=== PATIENT | female | born 1945 | race Caucasian/White ===

== ENCOUNTER 2018-04-03 07:30 | Emergency (ER) | payer OTHER, BC ==
[2018-04-03 07:38] VITALS: BMI 29.2
--- NOTE | 2018-04-03 07:50 | PDOC ---
History of Present Illness - General Chief Complaint: Pain, Acute Stated Complaint: ABD PAIN - History of Present Illness Initial Comments: The patient is a 72F w/ a history of graves s/p sx, HTN, and HLD who presents for 1d of RUQ abdominal pain that initially radiated towards her right flank and back but is now more localized in the RUQ/epigastric region. She describes the pain as burning/sharp, constant, not exacerbated or alleviated by anything she can identify, and she denies ever having had pain like this before. She notes for a short period last night that the pain radiated to her chest but no longer does so. She endorses associated N, burping, and flatus. Denies vomiting, diarrhea, fevers, vision changes, SOB, sick contacts. PCP: Dr. Ohara 04/03/18 08:01 Past History - Past Medical History Allergies/Adverse Reactions: Allergies Allergy/AdvReac Type Severity Reaction Status Date / Time pseudoephedrine Allergy palpitation Verified 04/03/18 07:34 s Home Medications: Ambulatory Orders Amlodipine Besylate 5 mg PO DAILY 04/03/18 Levothyroxine [Synthroid -] 125 mcg PO DAILY 04/03/18 Metoprolol Succinate [Toprol Xl] 50 mg PO DAILY 04/03/18 Pravastatin Sodium [Pravachol (Nf)] 20 mg PO HS 04/03/18 Cardiac Disorders: (tachycardia) COPD: No HTN: Yes Hypercholesterolemia: Yes Thyroid Disease: Yes - Surgical History Appendectomy: Yes - Immunization History Immunization Up to Date: Yes - Suicide/Smoking/Psychosocial Hx Smoking History: Former smoker Have you smoked in the past 12 months: No If you are a former smoker, when did you quit?: 2000 Information on smoking cessation initiated: No Hx Alcohol Use: No Drug/Substance Use Hx: No Substance Use Type: None Review of Systems - Review of Systems Able to Perform ROS?: Yes Comments:: GENERAL/CONSTITUTIONAL: No fever or chills. No weakness HEAD, EYES, EARS, NOSE AND THROAT: No change in vision. No ear pain or discharge. No sore throat CARDIOVASCULAR: No shortness of breath RESPIRATORY: No cough, wheezing, or hemoptysis GASTROINTESTINAL: per HPI GENITOURINARY: No dysuria, frequency, or change in urination MUSCULOSKELETAL: No joint or muscle swelling or pain. No neck or back pain SKIN: No rash NEUROLOGIC: No headache, vertigo, loss of consciousness, or change in strength/ sensation ENDOCRINE: No increased thirst. No abnormal weight change HEMATOLOGIC/LYMPHATIC: No anemia, easy bleeding, or history of blood clots ALLERGIC/IMMUNOLOGIC: No hives or skin allergy 04/03/18 08:04 Is the patient limited Wallisian proficient: No *Physical Exam - Vital Signs Last Vital Signs Temp Pulse Resp BP Pulse Ox 98.6 F 97 H 18 118/73 99 04/03/18 07:31 04/03/18 07:31 04/03/18 07:31 04/03/18 07:31 04/03/18 07:31 - Physical Exam Comments: GENERAL: Awake, alert, and fully oriented, in no acute distress HEAD: No signs of trauma, normocephalic, atraumatic EYES: PERRLA, EOMI, sclera anicteric, conjunctiva clear ENT: Hearing grossly normal, nares patent, oropharynx clear without exudates. Moist mucosa LUNGS: No distress, speaks full sentences, clear to auscultation bilaterally HEART: Regular rate and rhythm, normal S1 and S2, no murmurs appreciated, peripheral pulses normal and equal bilaterally ABDOMEN: Soft, mild RUQ/epigastric TTP, normoactive bowel sounds. non- distended. No guarding, no rebound EXTREMITIES : Normal inspection, Normal range of motion, no edema. No clubbing or cyanosis NEUROLOGICAL: Cranial nerves II through XII grossly intact. Normal speech, normal gait, no focal sensorimotor deficits SKIN: Warm, Dry, normal turgor, no rashes or lesions noted 04/03/18 08:06 ED Treatment Course - LABORATORY CBC & Chemistry Diagram: 04/03/18 08:30 04/03/18 08:30 Medical Decision Making - Medical Decision Making The patient is a 72F who presents for evaluation of epigastric/RUQ abd pain ddx: biliary dz, pancreatitis, gastritis, PUD; less likely colitis, perforation ED Course CMP, CBC, cardiac profile, lipase CXR ECG 1L NS, Ofirmev, and Zofran 04/03/18 08:07 ECG QTc 485 Sinus tachy 04/03/18 08:18 No leukocytosis Hgb 14 Tbili 0.6 Trop I neg No IZZY Lipase wnl, lytes wnl 04/03/18 09:44 GI cocktail for symptomatic relief Less likely to be biliary dz w/ normal Tbili, only mild RUQ pain, no known relation to food 04/03/18 09:52 Symptoms improved, abd NTTP, denies N/V; endorses wanting to eat and tolerated fluid W/u w/o findings of emergent pathology Plan for D/C w/ PCP f/u and GI referral Possibly 2/2 PUD Discharge instructions and return precautions given Patient verbalized understanding and is in agreement Dispo: Home 04/03/18 12:24 *DC/Admit/Observation/Transfer Diagnosis at time of Disposition: RUQ abdominal pain, PUD (peptic ulcer disease) - Discharge Dispostion Disposition: HOME Condition at time of disposition: Stable Decision to Admit order: No - Referrals Referrals: Reece Ohara [Primary Care Provider] - Tiffanie Curtis MD [Staff Physician] - - Patient Instructions Printed Discharge Instructions: DI for Abdominal Pain-Adult Additional Instructions: You were seen in the Emergency Department for abdominal pain. You were evaluated and found to not have any visible gallstones or inflammation of your pancreas on ultrasound. Your other labs were within normal limits. Please review the handouts provided at discharge. Please follow up with your primary care physician within the next 1-4 days. Return to the Emergency Department if you develop worsening pain, nausea/ vomiting, fevers/chills, diarrhea, blood in your urine or stool, or any new/ concerning symptoms. - Post Discharge Activity
--- NOTE | 2018-04-03 07:59 | PDOC ---
Attending Attestation - HPI HPI: 04/03/18 08:51 The patient is a 72-year-old female with a past medical history of HTN, HLD, and hypothyroidism here today for an evaluation of right upper quadrant pain. The patient reports her pain started one day ago, radiated to her right flank, an 8/10 in severity, and is burning/sharp in quality. The patient notes however that her pain now radiates across her whole upper quadrant and notes it radiated once to her chest. She reports nothing has given her relief. She notes associated nausea and bloating. The patient denies the pain is similar to a prior stomach virus. Patient denies fever, cough, headache, lightheadedness. Denies shortness of breath. Denies vomiting, diarrhea. Denies edema or leg swelling. Denies urinary symptoms. Denies neurologic symptoms. Allergies: pseudoephedrine Surgical history: none reported Family history: gallstones PCP: Reece cervantes. - Physicial Exam PE: 04/03/18 08:51 GENERAL: The patient is in no acute distress. HEAD: Normal with no signs of trauma. EYES: PERRLA, EOMI, sclera anicteric, conjunctiva clear. ENT: Ears normal, nares patent, oropharynx clear without exudates. Moist mucous membranes. NECK: Normal range of motion, supple without lymphadenopathy, JVD, or masses. LUNGS: Breath sounds equal, clear to auscultation bilaterally. No wheezes, and no crackles. HEART:Regular rate and rhythm, normal S1 and S2 without murmur, rub or gallop. ABDOMEN: Soft, nontender, normoactive bowel sounds. No guarding, no rebound. No masses palpable. EXTREMITIES: Normal range of motion, no edema. No clubbing or cyanosis. No erythema, or tenderness. NEUROLOGICAL: Cranial nerves II through XII grossly intact. Normal speech. No focal neurological deficits. MUSCULOSKELETAL: Back non-tender to palpation, no CVA tenderness SKIN: Warm, Dry, normal turgor, no rashes or lesions noted. - Medical Decision Making 04/03/18 08:52 Documentation prepared by Kamryn Robertson, acting as medical csr for Jodie Sarah MD. <Kamryn Robertson - Last Filed: 04/03/18 08:51> - Resident Resident Name: Osei Lawson - ED Attending Attestation I have performed the following: I have examined & evaluated the patient, The case was reviewed & discussed with the resident, I agree w/resident's findings & plan, Exceptions are as noted - Medical Decision Making 72 yo F h/o appendectomy Presenting to the ER with upper abdominal pain No point tenderness on my examination No fevers or chills (+) nausea, no vomiting No diarrhea (+) flatus On exam: No point tenderness identified No abd distention 04/03/18 07:58 EKG: Sinus rhythm rate of 112 bpm, Left axis deviation, no st elevation, ? ST depressions II, aVF, t wave inversions DD: gastritis, pancreatitis, cholecystitis, ACS Will do: Labs (including trop and lipase), IVF, pain meds US UA EKG ReAssess 04/03/18 09:51 Laboratory Tests 04/03/18 04/03/18 04/03/18 08:30 08:30 08:30 WBC 6.2 Hgb 14.1 Hct 39.7 Plt Count 269 BUN 11 Creatinine 0.8 Lactic Acid 1.7 Creatine Kinase 50 Troponin I < 0.02 Lipase 166 US no gallstones, no PCCF, No gb wall thickening Trop neg (after symptoms all night) Lactate negative Pt feels better Will discharge to home Follow up with PMD and GI Return to the ER for any other concerns or complaints 04/04/18 09:49 <Jodie Sarah - Last Filed: 04/04/18 09:50> *DC/Admit/Observation/Transfer <Kamryn Robertson - Last Filed: 04/03/18 08:51> <Jodie Sarah - Last Filed: 04/04/18 09:50> Diagnosis at time of Disposition: RUQ abdominal pain, PUD (peptic ulcer disease) - Discharge Dispostion Disposition: HOME Condition at time of disposition: Stable - Referrals Referrals: Reece Cervantes [Primary Care Provider] - Tiffanie Curtis MD [Staff Physician] - - Patient Instructions Printed Discharge Instructions: DI for Abdominal Pain-Adult Additional Instructions: You were seen in the Emergency Department for abdominal pain. You were evaluated and found to not have any visible gallstones or inflammation of your pancreas on ultrasound. Your other labs were within normal limits. Please review the handouts provided at discharge. Please follow up with your primary care physician within the next 1-4 days. Return to the Emergency Department if you develop worsening pain, nausea/ vomiting, fevers/chills, diarrhea, blood in your urine or stool, or any new/ concerning symptoms. - Post Discharge Activity
[2018-04-03] MEDS ORDERED: SODIUM CHLORIDE 0.9% 500 ML INFUS.BAG IV ONE (08:07)
[2018-04-03] MEDS ORDERED: ONDANSETRON 4 MG/2 ML VIAL IVPUSH ONE (08:07)
[2018-04-03] MEDS ORDERED: ACETAMINOPHEN 1000 MG/100 ML VIAL (NON FORMULARY) IVPB ONE (08:07)
[2018-04-03] MEDS ORDERED: ACETAMINOPHEN INJECTION 100 ML IVPB ONE (08:25)
[2018-04-03] MEDS ORDERED: ONDANSETRON 4 MG/2 ML VIAL ONE (08:25)
[2018-04-03 08:38] LABS: HEMATOCRIT 39.7 % (32.4-45.2); HEMOGLOBIN 14.1 GM/dL (10.7-15.3); MCH 32.5 pg (25.7-33.7); MCHC 35.5 g/dl (32.0-36.0); MEAN CELL VOLUME 91.5 fl (80-96); MEAN PLT VOLUME 7.7 fl (7.5-11.1); PLATELET COUNT 269 K/MM3 (134-434); RBC 4.34 M/mm3 (3.60-5.2); RDW 12.8 % (11.6-15.6); WHITE BLOOD COUNT 6.2 K/mm3 (4.0-10.0)
[2018-04-03 09:14] LABS: ALK PHOS 78 U/L (45-117); ANION GAP 7 MMOL/L (8-16); BILIRUBIN,TOTAL 0.6 mg/dL (0.2-1); BLOOD UREA NITROGEN 11 mg/dL (7-18); CALCIUM 9.4 mg/dL (8.5-10.1); CHLORIDE 107 mmol/L (98-107); CO2 26 mmol/L (21-32); CREATININE 0.8 mg/dL (0.55-1.3); GLUCOSE,RANDOM 110 mg/dL (74-106); LIPASE 166 U/L (73-393); POTASSIUM 4.1 mmol/L (3.5-5.1); SGOT/AST 21 U/L (15-37); SGPT/ALT 31 U/L (13-61); SODIUM 140 mmol/L (136-145); TOT PROT 8.2 g/dl (6.4-8.2)
[2018-04-03] MEDS ORDERED: LIDOCAINE VISCOUS 2% ORAL/TOP 20 ML UNIT-DOSE CUP MM ONE (09:51)
[2018-04-03] MEDS ORDERED: MAG HYDROX/AL HYDROX/SIMETH 30 ML UNIT-DOSE CUP PO ONE (09:51)
[2018-04-03 10:07] LABS: URINE APPEARANCE CLEAR; URINE BILIRUBIN NEGATIVE (<2.0 mg/dL); URINE COLOR STRAW; URINE GLUCOSE (UA) NEGATIVE (NEGATIVE); URINE KETONE NEGATIVE (NEGATIVE); URINE LEUK ESTERASE NEGATIVE (NEGATIVE); URINE NITRITE NEGATIVE (NEGATIVE); URINE PROTEIN NEGATIVE (NEGATIVE); URINE UROBILINOGEN NEGATIVE mg/dL (0.2-1.0)
[2018-04-03 10:30] LABS: URINE MUCUS RARE
[2018-04-03] MEDS ORDERED: MAG HYDROX/AL HYDROX/SIMETH 30 ML UNIT-DOSE CUP ONE (10:35)
[2018-04-03 11:36] VITALS: BP 128/74; PULSE 81; TEMP 98.2
--- NOTE | 2018-04-03 15:36 | EKG ---
Test Reason : Blood Pressure : / mmHG Vent. Rate : 112 BPM Atrial Rate : 112 BPM P-R Int : 154 ms QRS Dur : 080 ms QT Int : 356 ms P-R-T Axes : 052 -38 031 degrees QTc Int : 485 ms SINUS TACHYCARDIA LEFT AXIS DEVIATION NONSPECIFIC ST ABNORMALITY cannot r/o ischemia ABNORMAL ECG WHEN COMPARED WITH ECG OF 13-NOV-2015 22:20, SINUS RHYTHM HAS REPLACED JUNCTIONAL RHYTHM VENT. RATE HAS INCREASED BY 48 BPM T WAVE INVERSION NO LONGER EVIDENT IN ANTERIOR LEADS Confirmed by FREDI HAAS MD ([id number]) on 04/03/2018 3:35:40 PM Referred By: Confirmed By:FREDI HAAS MD
== END 2018-04-03 11:36 | disposition home or self-care (01) ==
LOC: JER 07:30
PROC: 3E033NZ Introduction of Analgesics, Hypnotics, Sedatives into Peripheral Vein, Percutaneous Approach (ICD-10-PCS; principal; 2018-04-03)
PROC: 3E033GC Introduction of Other Therapeutic Substance into Peripheral Vein, Percutaneous Approach (ICD-10-PCS; 2018-04-03)
DX: K27.9 Peptic ulcer, site unspecified, unspecified as acute or chronic, without hemorrhage or perforation (principal); I10 Essential (primary) hypertension; E78.5 Hyperlipidemia, unspecified; E89.0 Postprocedural hypothyroidism
CPT/HCPCS: 36415; 71045-TC-FY; 76705-TC; 80053; 81003; 81015; 82550; 83605; 83690; 84484; 85027; 93005; 93010; 99284-25; J0131

== ENCOUNTER 2018-12-27 11:46 | Emergency (ER) | payer OTHER, BC ==
[2018-12-27 11:54] VITALS: BMI 28.9
[2018-12-27] MEDS ORDERED: ADENOSINE 6 MG/2 ML VIAL IVPUSH ONE ×2 (12:00→12:29)
--- NOTE | 2018-12-27 12:06 | PDOC ---
History of Present Illness - General Chief Complaint: Palpitations Stated Complaint: PALPITATIONS Time Seen by Provider: 12/27/18 12:05 - History of Present Illness Initial Comments: 12/27/18 12:38 The patient is a 73 year old female with a history of HTn, HLD, Hypothyroid, SVT who presents for evaluation of palpitations. The patient reports onset of palpitations and a racing heart sensation earlier this morning similar to her prior episodes of SVT prompting her presentation to the ED for further evaluation. The patient notes that her last episode of SVT was 1 and a half years ago. She otherwise denies fevers, chills, SOB, chest pain, nausea, vomiting, abdominal pain, or changes with urination or bowel movements. Past History - Past Medical History Allergies/Adverse Reactions: Allergies Allergy/AdvReac Type Severity Reaction Status Date / Time pseudoephedrine Allergy palpitation Verified 12/27/18 11:48 s Home Medications: Ambulatory Orders Amlodipine Besylate 5 mg PO DAILY 04/03/18 Levothyroxine [Synthroid -] 125 mcg PO DAILY 04/03/18 Metoprolol Succinate [Toprol Xl] 50 mg PO DAILY 04/03/18 Pravastatin Sodium [Pravachol (Nf)] 20 mg PO HS 04/03/18 Cardiac Disorders: (tachycardia) COPD: No HTN: Yes Hypercholesterolemia: Yes Thyroid Disease: Yes - Surgical History Appendectomy: Yes - Immunization History Immunization Up to Date: Yes - Suicide/Smoking/Psychosocial Hx Smoking History: Never smoked Have you smoked in the past 12 months: No If you are a former smoker, when did you quit?: 2000 Information on smoking cessation initiated: No Hx Alcohol Use: No Drug/Substance Use Hx: No Substance Use Type: None Review of Systems - Review of Systems Comments:: 12/27/18 12:41 Constitutional: No fevers, chills, fatigue, malaise HEENT: No Rhinorrhea, nasal congestion, visual changes Cardiovascular: Palpitations. No chest pain, syncope, lightheadedness Respiratory: No Cough, SOB, Hemoptysis, Gastrointestinal: No Abdominal pain, Nausea, Vomiting, Constipation, Diarrhea, Melena Genitourinary: No Dysuria, Frequency, Urgency, Hesitancy, Hematuria, Flank pain Musculoskeletal: No Myalgia, arthralgia Skin: No rashes, itching, bruising, pallor Neurologic: No Headache, Dizziness, Numbness, Weakness, or Tingling Psychiatric: No Hallucinations. No SI or HI *Physical Exam - Vital Signs Last Vital Signs Temp Pulse Resp BP Pulse Ox 98.5 F 205 H 20 111/37 L 98 12/27/18 11:49 12/27/18 11:49 12/27/18 11:49 12/27/18 11:49 12/27/18 11:49 - Physical Exam Comments: 12/27/18 12:41 General Appearance: Nourished. No Apparent Distress HEENT: No Pharyngeal Erythema, Tonsillar Exudate, Tonsillar Erythema Neck: No Cervical Lymphadenopathy Respiratory/Chest: Lungs Clear, Normal Breath Sounds. No Crackles, Rales, Rhonchi, Wheezing Cardiovascular: Regular Rhythm, Tachycardic Rate. No Murmur, Gallops, Rubs Gastrointestinal/Abdominal: Normal Bowel Sounds, Soft. No Guarding, Rebound, Tenderness Musculoskeletal: No CVA Tenderness Extremity: Normal Capillary Refill Integumentary: Normal Color, Dry, Warm Neurologic: Fully Oriented, Alert, Normal Mood/Affect, Normal Response, Heart Score/ECG Review #1 ECG reviewed & interpreted by me at: 12:00 12/27/18 12:42 HR 207 QRS 84 QTc 401 Supraventricular Tachycardia #2 ECG reviewed & interpreted by me at: 12:15 12/27/18 12:43 HR 123 NE 162 QRS 82 QTc [address] No Acute ST Changes ED Treatment Course - LABORATORY CBC & Chemistry Diagram: 12/27/18 12:00 12/27/18 12:00 Medical Decision Making - Medical Decision Making 12/27/18 12:44 The patient is a 73 year old female with a history of HTn, HLD, Hypothyroid, SVT who presents for evaluation of palpitations. The patient was noted to be in SVT on EKG on arrival to the ED. She was treated with 6mg of Adenosine with conversion into a sinus rhythm and improvement in her symptoms. Given the patient's history and physical exam, it is likely the patient's symptoms are due to SVT. The patient appears clinically well on exam after treatment and is now asymptomatic. However, we will obtain a cbc, cmp, troponin, tsh, bnp, coags , to evaluate further. We will continue to monitor and reassess while here in the ED. 12/27/18 14:06 CBC, cmp, troponin, tsh are unremarkable. The patient was reassessed and reports improvement in their symptoms. We are comfortable discharging the patient home in stable condition. Patient and family made aware of impression and plan, return precautions discussed including but not limited to worsening pain or symptoms, fevers, or signs of infection, chest pain, respiratory distress, inability to tolerate oral intake, dehydration, syncope, or neurologic changes. The patient is to follow up with PMD and specialist as recommended within 1 week, follow up information provided and the patient will call for an appointment. The patient is to take medications as instructed for duration of time and continue with supportive care, avoid triggers and precipitants. Patient is safe for outpatient follow-up. *DC/Admit/Observation/Transfer Diagnosis at time of Disposition: SVT (supraventricular tachycardia) - Discharge Dispostion Disposition: HOME Condition at time of disposition: Stable - Referrals Referrals: Reece Ohara [Primary Care Provider] - - Patient Instructions Printed Discharge Instructions: DI for Paroxysmal Supraventricular Tachycardia Additional Instructions: 1) Please follow-up with your primary care doctor in the next 2-3 days. Please call tomorrow to schedule a follow up appointment. If you cannot follow up with your doctor within 1 week please return to the Emergency Department for any urgent issues. 2) Your laboratory results were normal here in the ER. Your symptoms were due to an abnormal heart rhythm which resolved with treatment here in the ED. You are to follow up with your Locomotive Mechanic Apprentice in 2-3 days to discuss your ER visit and further management of your symptoms. 3) If you have any worsening of symptoms or any other concerns please return to the ER immediately. Return if worsening symptoms including fevers, headache, vomiting, visual or hearing disturbances, abdominal pain, chest pain, shortness of breath, syncope, dehydration, inability to take things by mouth/vomiting, altered mental status, or worsening concerning symptoms. 4) Please continue taking your home medications as directed. Side effects may include upset stomach, abdominal pain, vomiting, or diarrhea. Do not drink alcohol with your medications. - Post Discharge Activity
[2018-12-27] MEDS ORDERED: SODIUM CHLORIDE 1,000 ML IV STA (12:25)
[2018-12-27 13:09] LABS: ALBUMIN 4.1 g/dl (3.4-5.0); ALK PHOS 99 U/L (45-117); ANION GAP 8 MMOL/L (8-16); BILIRUBIN,TOTAL 0.8 mg/dL (0.2-1); BLOOD UREA NITROGEN 15.5 mg/dL (7-18); CALCIUM 9.5 mg/dL (8.5-10.1); CHLORIDE 107 mmol/L (98-107); CO2 26 mmol/L (21-32); CREATININE 0.8 mg/dL (0.55-1.3); GLUCOSE,RANDOM 101 mg/dL (74-106); POTASSIUM 4.6 mmol/L (3.5-5.1); SGOT/AST 21 U/L (15-37); SGPT/ALT 28 U/L (13-61); SODIUM 140 mmol/L (136-145); TOT PROT 8.2 g/dl (6.4-8.2)
[2018-12-27 13:17] LABS: INR 0.92 (0.83-1.09); PROTHROMBIN TIME (PATIENT) 10.8 SEC (9.7-13.0)
--- NOTE | 2018-12-27 13:18 | PDOC ---
Attending Attestation - Resident Resident Name: CyndeeAlbert - ED Attending Attestation I have performed the following: I have examined & evaluated the patient, The case was reviewed & discussed with the resident, I agree w/resident's findings & plan, Exceptions are as noted - HPI HPI: 12/27/18 13:09 Ms. Rangel is a 73 yo F h/o graves disease, HTN, HLD, recurrent history of SVT over the past 25 years Pt reports that she was in her usual state of health and noted palpitations this morning No chest pain No shortness of breath She is very familiar with these symptoms, last time she had them was 1 year ago - Physicial Exam PE: 12/27/18 13:25 GENERAL: The patient is in no acute distress. ENT: Ears normal, nares patent, oropharynx clear without exudates. Moist mucous membranes. NECK: Normal range of motion, supple LUNGS: Breath sounds equal, clear to auscultation bilaterally. HEART: Tachycardiac, regular, no murmur appreciated ABDOMEN: Soft, nontender, normoactive bowel sounds. EXTREMITIES: Normal range of motion, no lower extremity edema. NEUROLOGICAL: Cranial nerves II through XII grossly intact. Normal speech. No focal neurological deficits. SKIN: Warm, Dry, normal turgor, no rashes or lesions noted. - Critical Care Time Total Critical Care Time: 60 Critical Care Statement: The care of this patient involved high complexity decision making to prevent further life threatening deterioration of the patient 's condition and/or to evaluate & treat vital organ system(s) failure or risk of failure. - Medical Decision Making 12/27/18 13:[address] Gray She has reviewed her notes, May 2018 stress echo, did 5 minutes of Osbaldo protocol, nml fxn, no ischemia, TR She is requesting copies of the EKG be faxed to [phone] Pt can increase metoprolol to 75mg (will discuss this with the patient) or be seen by EP for ablation (if episodes SVT increases) EKG #1: SVT rate of 207bpm EKG #2: ST rate of 123 bpm, L axis deviation, lateral st depressions, t waves upright 12/27/18 13:23 Laboratory Tests 12/27/18 12/27/18 12:00 12:00 BUN 15.5 Creatinine 0.8 Creatine Kinase 51 Troponin I < 0.02 TSH 1.25 Clinical impression: Supraventricular Tachycardia, initial presentation 12/27/18 14:00 Laboratory Tests 12/27/18 12:00 WBC 7.7 Hgb 14.4 Hct 42.5 Plt Count 344 D Will discharge to home Follow up with [employer] Clinical impression: SVT, initial presentation
[2018-12-27 13:53] LABS: BASO % 1.1 % (0-2.0); HEMATOCRIT 42.5 % (32.4-45.2); HEMOGLOBIN 14.4 GM/dL (10.7-15.3); LYMPH % 34.8 % (8-40); MCH 31.1 pg (25.7-33.7); MEAN CELL VOLUME 91.5 fl (80-96); MEAN PLT VOLUME 8.1 fl (7.5-11.1); MONO % 9.7 % (3.8-10.2); NEUT % 52.4 % (42.8-82.8); PLATELET COUNT 344 K/MM3 (134-434); RBC 4.64 M/mm3 (3.60-5.2); RDW 13.2 % (11.6-15.6); WHITE BLOOD COUNT 7.7 K/mm3 (4.0-10.0)
[2018-12-27 14:20] VITALS: BP 142/88; PULSE 91; TEMP 98
--- NOTE | 2018-12-29 11:42 | EKG ---
Test Reason : Blood Pressure : / mmHG Vent. Rate : 123 BPM Atrial Rate : 123 BPM P-R Int : 162 ms QRS Dur : 082 ms QT Int : 306 ms P-R-T Axes : 049 -31 052 degrees QTc Int : 438 ms SINUS TACHYCARDIA LEFT AXIS DEVIATION NONSPECIFIC ST ABNORMALITY ABNORMAL ECG WHEN COMPARED WITH ECG OF 27-DEC-2018 11:54, VENT. RATE HAS DECREASED BY [address] LESS DEPRESSED IN LATERAL LEADS Confirmed by DAVID MARTINEZ, BONNIE ([id number]) on 12/29/2018 11:41:30 AM Referred By: Confirmed By:BONNIE HERNANDEZ MD
--- NOTE | 2018-12-29 11:42 | EKG ---
Test Reason : Blood Pressure : / mmHG Vent. Rate : 207 BPM Atrial Rate : 202 BPM P-R Int : 000 ms QRS Dur : 084 ms QT Int : 216 ms P-R-T Axes : 000 -21 073 degrees QTc Int : 401 ms POOR DATA QUALITY, INTERPRETATION MAY BE ADVERSELY AFFECTED SUPRAVENTRICULAR TACHYCARDIA ST depression, consider subendocardial injury ABNORMAL ECG WHEN COMPARED WITH ECG OF 03-APR-2018 07:46, VENT. RATE HAS INCREASED BY [address] NOW DEPRESSED IN LATERAL LEADS Confirmed by BONNIE HERNANDEZ MD ([id number]) on 12/29/2018 11:41:40 AM Referred By: Confirmed By:BONNIE HERNANDEZ MD
== END 2018-12-27 14:19 | disposition home or self-care (01) ==
LOC: JER 11:46
PROC: 3E033GC Introduction of Other Therapeutic Substance into Peripheral Vein, Percutaneous Approach (ICD-10-PCS; principal; 2018-12-27)
PROC: 3E0337Z Introduction of Electrolytic and Water Balance Substance into Peripheral Vein, Percutaneous Approach (ICD-10-PCS; 2018-12-27)
DX: I47.1 Supraventricular tachycardia (principal); I10 Essential (primary) hypertension; E78.5 Hyperlipidemia, unspecified; E03.9 Hypothyroidism, unspecified
CPT/HCPCS: 36415; 80053; 82550; 84443; 84484; 85025; 85610; 85730; 93005; 93010; 96361; 96374; 99285-25; J7030

== ENCOUNTER 2019-03-20 10:59 | Emergency (ER) | payer OTHER, BC ==
[2019-03-20] MEDS ORDERED: ADENOSINE 6 MG/2 ML VIAL IVPUSH ONE ×3 (11:12→11:31)
--- NOTE | 2019-03-20 11:26 | PDOC ---
History of Present Illness - General Stated Complaint: CHEST PAIN Time Seen by Provider: 03/20/19 11:10 - History of Present Illness Initial Comments: 03/20/19 11:23 73 yo F PMH Graves disease, HTN, HLD, recurrent SVT for past 25 years, presenting with rapid heart rate to the 190s. Feels identical to previous SVT episodes, CP, mild SOB. Notably seen here several months ago with same. 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 Past History - Past Medical History Allergies/Adverse Reactions: Allergies Allergy/AdvReac Type Severity Reaction Status Date / Time pseudoephedrine Allergy palpitation Verified 03/20/19 11:20 s Home Medications: Ambulatory Orders Amlodipine Besylate 5 mg PO DAILY 04/03/18 Levothyroxine [Synthroid -] 125 mcg PO DAILY 04/03/18 Metoprolol Succinate [Toprol Xl] 50 mg PO DAILY 04/03/18 Pravastatin Sodium [Pravachol (Nf)] 20 mg PO HS 04/03/18 Cardiac Disorders: (tachycardia) COPD: No HTN: Yes Hypercholesterolemia: Yes Thyroid Disease: Yes - Surgical History Appendectomy: Yes - Immunization History Immunization Up to Date: Yes - Psycho Social/Smoking Cessation Hx Smoking History: Never smoked Have you smoked in the past 12 months: No If you are a former smoker, when did you quit?: 2000 Hx Alcohol Use: No Drug/Substance Use Hx: No Substance Use Type: None Review of Systems - Review of Systems Constitutional: No: Chills, Diaphoresis, Fever HEENTM: No: Eye Pain, Blurred Vision, Tinnitus, Difficulty Swallowing Respiratory: Yes: Shortness of Breath. No: Cough, Orthopnea Cardiac (ROS): Yes: Chest Pain, Palpitations ABD/GI: No: Constipated, Nausea, Vomiting : No: Burning, Dysuria, Discharge, Frequency, Flank Pain Musculoskeletal: No: Back Pain Neurological: No: Headache, Numbness, Tingling, Ataxia, Dizziness *Physical Exam - Vital Signs Last Vital Signs Temp Pulse Resp BP Pulse Ox 195 H 16 115/98 99 03/20/19 11:18 03/20/19 11:18 03/20/19 11:18 03/20/19 11:18 - Physical Exam Comments: 03/20/19 11:22 Gen: well-developed, well-nourished, mild distress Neuro: AAOX4, CN II-XII intact, FTN intact, EOMI, PERRLA, 5/5 strength, SILT HEENT: atraumatic, normocephalic, dry mucous membranes Neck: trachea midline, supple CV: extremely tachy, regular rhythm, no murmurs, rubs, or gallops Pulm: CTA b/l, no wheezing Abd: soft, non-distended, non-tender MSK: full ROM, intact pulses Extr: no edema, no deformities Skin: warm, dry ED Treatment Course - LABORATORY CBC & Chemistry Diagram: 03/20/19 11:17 03/20/19 11:17 Medical Decision Making - Medical Decision Making 03/20/19 11:21 73 yo F PMH Graves disease, HTN, HLD, recurrent history of SVT over the past 25 years, p/w SVT to the 190s. - received adenosine 6mg - back in sinus, 120s bpm - ctm - 1L bolus - CBC, CMP, CXR, coags - TSH - ctm Initial EKG at 192 bpm, SVT. Now in sinus in 120s, slowing down over time. 03/20/19 11:30 Patient again in SVT to 190s. Given adenosine 12mg at 1133, back to normal sinus in 90s. 03/20/19 12:34 TSH normal. Spoke with Dr. Bailey, they will come see her. 03/20/19 16:[address] Amos, recommends Metoprolol 50mg BID, may follow up with Dr. Mortensen in [facility] or with Dr. Amos. Will dc patient. Discharge - Discharge Information Problems reviewed: Yes Clinical Impression/Diagnosis: SVT (supraventricular tachycardia) Condition: Improved Disposition: HOME - Follow up/Referral Referrals: Reece Ohara [Primary Care Provider] - Aleksandra Aguirre MD [Staff Physician] - - Patient Discharge Instructions Patient Printed Discharge Instructions: Paroxysmal Supraventricular Tachycardia Additional Instructions: You were seen with supraventricular tachycardia (SVT). This is when your heart beats extremely quickly. Please take metoprolol 50mg twice a day instead of your normal once a day. Follow up with your primary care doctor within one week. You may see Dr. Babatunde Mortensen within [facility] or with Dr. Aguirre for cardiology. Return to the ED if you develop worsening symptoms. - Post Discharge Activity
[2019-03-20 11:28] VITALS: BMI 26.5
[2019-03-20] MEDS ORDERED: SODIUM CHLORIDE 0.9% 500 ML INFUS.BAG IV ONE (11:28)
[2019-03-20 11:30] LABS: BASO % 1.1 % (0-2.0); EOS % 2.8 % (0-4.5); HEMATOCRIT 43.1 % (32.4-45.2); HEMOGLOBIN 14.5 GM/dL (10.7-15.3); MCH 31.4 pg (25.7-33.7); MCHC 33.7 g/dl (32.0-36.0); MEAN CELL VOLUME 93.2 fl (80-96); MONO % 9.2 % (3.8-10.2); NEUT % 47.9 % (42.8-82.8); PLATELET COUNT 298 K/MM3 (134-434); RBC 4.63 M/mm3 (3.60-5.2); RDW 12.9 % (11.6-15.6); WHITE BLOOD COUNT 7.1 K/mm3 (4.0-10.0)
[2019-03-20 11:38] LABS: INR 0.94 (0.83-1.09); PROTHROMBIN TIME (PATIENT) 11.1 SEC (9.7-13.0)
[2019-03-20] MEDS ORDERED: ALPRAZolam 1 MG TABLET PO ONE (11:38)
[2019-03-20 11:40] LABS: ACTIVATED PTT 32.9 SECONDS (25.2-36.5)
[2019-03-20] MEDS ORDERED: ALPRAZolam 0.25 MG TABLET ONE (11:40)
--- NOTE | 2019-03-20 11:48 | EKG ---
Test Reason : Blood Pressure : / mmHG Vent. Rate : 116 BPM Atrial Rate : 116 BPM P-R Int : 154 ms QRS Dur : 082 ms QT Int : 328 ms P-R-T Axes : 049 -31 064 degrees QTc Int : 455 ms SINUS TACHYCARDIA LEFT AXIS DEVIATION NONSPECIFIC ST ABNORMALITY ABNORMAL ECG WHEN COMPARED WITH ECG OF 27-DEC-2018 11:59, NO SIGNIFICANT CHANGE WAS FOUND Confirmed by DARRIAN ANTONIO MD ([id number]) on 03/20/2019 11:47:46 AM Referred By: Confirmed By:DARRIAN ANTONIO MD
--- NOTE | 2019-03-20 11:51 | PDOC ---
Attending Attestation - Resident Resident Name: Lon Craig - ED Attending Attestation I have performed the following: I have examined & evaluated the patient, The case was reviewed & discussed with the resident, I agree w/resident's findings & plan, Exceptions are as noted - HPI HPI: 03/20/19 11:52 Ms. Rangel is a 73 yo F h/o graves disease, HTN, HLD, recurrent history of SVT over the past 25 years Pt reports that she was in her usual state of health and noted palpitations this morning No chest pain No shortness of breath She is very familiar with these symptoms as she repeatedly has this 03/21/19 07:51 - Physicial Exam PE: 03/20/19 11:53 GENERAL: The patient is in no acute distress. ENT: Ears normal, nares patent, oropharynx clear without exudates. Moist mucous membranes. NECK: Normal range of motion, supple LUNGS: Breath sounds equal, clear to auscultation bilaterally. HEART: Tachycardiac, regular, no murmur appreciated ABDOMEN: Soft, nontender, normoactive bowel sounds. EXTREMITIES: Normal range of motion, no lower extremity edema. NEUROLOGICAL: Cranial nerves II through XII grossly intact. Normal speech. No focal neurological deficits. SKIN: Warm, Dry, normal turgor, no rashes or lesions noted. - Critical Care Time Total Critical Care Time: 120 Critical Care Statement: The care of this patient involved high complexity decision making to prevent further life threatening deterioration of the patient 's condition and/or to evaluate & treat vital organ system(s) failure or risk of failure. - Medical Decision Making 03/20/19 11:53 EKG: SVT, rate of 192 bpm, inferolateral ST depressions Adenosine 6 mg IV given Return to sinus rhythm Repeat EKG: Sinus tachycardia, rate 160 bpm, left axis deviation, no ST elevation, lateral ST depression, T waves inversion V2, aVL 03/20/19 11:55 Called to see patient has heart rate elevated again Adenosine 12 mg IV push Normal saline continues to run Heart rate return to sinus rhythm Patient reports she is very anxious Xanax 0.25 given Labs pending Patient can no longer follow-up with her general dentist/owner as she is moved to [place] Will contact cardiology here 03/20/19 11:55 Laboratory Tests 03/20/19 03/20/19 11:17 11:17 WBC 7.1 Hgb 14.5 Hct 43.1 Plt Count 298 INR 0.94 03/20/19 12:07 Laboratory Tests 03/20/19 11:17 BUN 17.6 Creatinine 0.9 Pt has taken her medications for the day Plan had been to admit Hospitalist requests that patient be seen in the ER by cardiology as she may possibly not need to be admitted 03/20/19 15:[address] Aguirre in the ER Plan for discharge to home with outpatient follow up 03/20/19 16:[address] Aguirre in the ER. She recommends metoprolol 50 mg p.o. twice daily She recommends follow-up with Dr. Mortensen in [facility] for possible ablation She can also follow-up with Dr. Aguirre in the office I discussed the physical exam findings, ancillary test results and final diagnoses with the patient. I answered all of the patient's questions. The patient was satisfied with the care received and felt comfortable with the discharge plan and treatment plan. The patient will call their primary care physician within 24 hours to arrange follow-up and will return to the Emergency Department with any new, persistant or worsening symptoms. The patient understands that we could not exclude the possibility of an ectopic based on her emergency department workup. She understands that it is extremely important that she sees her physician within 24-48 hours for a repeat visit, including repeat blood work. 03/21/19 07:52
[2019-03-20 12:05] LABS: ALBUMIN 4.1 g/dl (3.4-5.0); BILIRUBIN,TOTAL 0.7 mg/dL (0.2-1); BLOOD UREA NITROGEN 17.6 mg/dL (7-18); CALCIUM 9.1 mg/dL (8.5-10.1); CREATININE 0.9 mg/dL (0.55-1.3); POTASSIUM 3.6 mmol/L (3.5-5.1); TOT PROT 8.2 g/dl (6.4-8.2)
[2019-03-20 13:27] LABS: MAGNESIUM 2.3 mg/dL (1.8-2.4)
--- NOTE | 2019-03-20 13:39 | PN ---
Teaching Attending Note Name of Resident: Ck Diamond ATTENDING PHYSICIAN STATEMENT I saw and evaluated the patient. I reviewed the resident's note and discussed the case with the resident. I agree with the resident's findings and plan as documented. SUBJECTIVE: Recurrent palpitation OBJECTIVE: Vital Signs Temperature Pulse Rate 189 H 03/20/19 11:30 Respiratory Rate 16 03/20/19 11:30 Blood Pressure 101/70 03/20/19 11:30 O2 Sat by Pulse Oximetry (%) 100 03/20/19 11:37 General: Elderly woman, comfortable, not in distress HEENT; mucous membranes moist, no anemia, no jaundice, PERRLA, no nystagmus Neck: No JVD, supple, no bruit, thyroid palpably normal, normal carotid pulsations. Chest: Nontender, clear to auscultation bilaterally/bilateral wheezing/ bilateral basal rales. CVS: S1-S2 regular no murmur/gallop/rub Abdomen: Nondistended, soft, bowel sounds present. Extremities: No edema., No cough tenderness, pulses present PRINTING BINDERY ASSISTANT: AO X3 , no gross motor sensory deficit CBC,CMP WBC 7.1 K/mm3 (4.0-10.0) 03/20/19 11:17 RBC 4.63 M/mm3 (3.60-5.2) 03/20/19 11:17 Hgb 14.5 GM/dL (10.7-15.3) 03/20/19 11:17 Hct 43.1 % (32.4-45.2) 03/20/19 11:17 MCV 93.2 fl (80-96) 03/20/19 11:17 MCH 31.4 pg (25.7-33.7) 03/20/19 11:17 MCHC 33.7 g/dl (32.0-36.0) 03/20/19 11:17 RDW 12.9 % (11.6-15.6) 03/20/19 11:17 Plt Count 298 K/MM3 (134-434) 03/20/19 11:17 MPV 8.0 fl (7.5-11.1) 03/20/19 11:17 Absolute Neuts (auto) 3.4 K/mm3 (1.5-8.0) 03/20/19 11:17 Neutrophils % 47.9 % (42.8-82.8) 03/20/19 11:17 Lymphocytes % 39.0 % (8-40) 03/20/19 11:17 Monocytes % 9.2 % (3.8-10.2) 03/20/19 11:17 Eosinophils % 2.8 % (0-4.5) 03/20/19 11:17 Basophils % 1.1 % (0-2.0) 03/20/19 11:17 Nucleated RBC % 0 % (0-0) 03/20/19 11:17 Sodium 143 mmol/L (136-145) 03/20/19 11:17 Potassium 3.6 mmol/L (3.5-5.1) 03/20/19 11:17 Chloride 110 mmol/L (98-107) H 03/20/19 11:17 Carbon Dioxide 24 mmol/L (21-32) 03/20/19 11:17 Anion Gap 9 MMOL/L (8-16) 03/20/19 11:17 BUN 17.6 mg/dL (7-18) 03/20/19 11:17 Creatinine 0.9 mg/dL (0.55-1.3) 03/20/19 11:17 Est GFR (CKD-EPI)AfAm 73.52 03/20/19 11:17 Est GFR (CKD-EPI)NonAf 63.43 03/20/19 11:17 Random Glucose 146 mg/dL (74-106) H 03/20/19 11:17 Calcium 9.1 mg/dL (8.5-10.1) 03/20/19 11:17 Phosphorus 3.0 mg/dL (2.5-4.9) 03/20/19 11:17 Magnesium 2.3 mg/dL (1.8-2.4) 03/20/19 11:17 Total Bilirubin 0.7 mg/dL (0.2-1) 03/20/19 11:17 AST 29 U/L (15-37) 03/20/19 11:17 ALT 34 U/L (13-61) 03/20/19 11:17 Alkaline Phosphatase 92 U/L (45-117) 03/20/19 11:17 Creatine Kinase 84 U/L (26-192) 03/20/19 11:17 Troponin I < 0.02 ng/ml (0.00-0.05) 03/20/19 11:17 Total Protein 8.2 g/dl (6.4-8.2) 03/20/19 11:17 Albumin 4.1 g/dl (3.4-5.0) 03/20/19 11:17 TSH 0.87 uIU/ml (0.358-3.74) 03/20/19 11:17 Free T4 1.36 ng/dl (0.76-1.46) 03/20/19 11:17 EKG: SVT with heart rate [address]-T changes ASSESSMENT AND PLAN: 73-year-old female history of hypertension, PSVT, recurrent episode of palpitation, hypertension, hypothyroidism on levothyroxine , who presents with complaint of palpitations that lasted more than 1 hour decremented to ED, patient denies any chest pain, shortness of breath, dizziness or loss of consciousness on arrival to the ED shows SVT with heart rate of 190s. Patient says it is a stress-related since January this is her third episode in the past she was having infrequent episodes once or twice in the year so ambulation was not considered, patient had a recent stress test and echocardiogram in May 2018 that was reported normal with her hospital orderly in the [place], [place], patient has recently moved to [place] in the [facility], will consider cardiology follow-up there. In the ED patient received 1 dose of Aygestin 6 mg converted to normal sinus rhythm at the time of examination hemodynamically stable denies any symptoms Patient is asymptomatic denies any shortness of breath, chest pain, palpitation at baseline exercise tolerance is unlimited Vitals: Heart rate 68/min regular, blood pressure 120 /80 O2 sat 98% on room air. Recommendation and plan: Patient can be switched to metoprolol 50 XL at present she is taking only short- acting metoprolol, in addition patient can be given 25 mg metoprolol as needed. Senior Data Quality Analyst consulted from the ED, if cleared by cardiology can be discharged home. Plan discussed with the resident
[2019-03-20 15:07] VITALS: BP 111/60; PULSE 70
--- NOTE | 2019-03-20 16:19 | CON.CARD ---
Consult Consult Specialty:: Cardiology Referred by:: ER Reason for Consultation:: SVT - History of Present Illness Chief Complaint: palpitations History of Present Illness: 73F h/o SVT, HTN, hypothyroidism p/w palpitations. Was diagnosed with SVT at least 10 years ago, had been getting an episode about once a year and was not offered ablation in the past, was on metoprolol succinate 50 mg daily. She has been more stressed lately, recently moved (stress is usual trigger) and had three episodes in the last 3 months, today episode of palps lasted more than an hour. No chest pain, dizziness, dyspnea. In the ER was in SVT with HR 190s, improved with adenosine. Now asymptomatic, wants to go home. - Alcohol/Substance Use Hx Alcohol Use: No - Smoking History Smoking history: Never smoked Have you smoked in the past 12 months: No If you are a former smoker, when did you quit?: 2000 Home Medications - Allergies Allergies/Adverse Reactions: Allergies Allergy/AdvReac Type Severity Reaction Status Date / Time pseudoephedrine Allergy palpitation Verified 03/20/19 11:20 s - Home Medications Home Medications: Ambulatory Orders Amlodipine Besylate 5 mg PO DAILY 04/03/18 Levothyroxine [Synthroid -] 125 mcg PO DAILY 04/03/18 Metoprolol Succinate [Toprol Xl] 50 mg PO DAILY 04/03/18 Pravastatin Sodium [Pravachol (Nf)] 20 mg PO HS 04/03/18 Family Medical History Family History: Unremarkable Review of Systems - Review of Systems Constitutional: reports: No Symptoms Eyes: reports: No Symptoms HENT: reports: No Symptoms Neck: reports: No Symptoms Cardiovascular: reports: No Symptoms Respiratory: reports: No Symptoms Gastrointestinal: reports: No Symptoms Genitourinary: reports: No Symptoms Musculoskeletal: reports: No Symptoms Integumentary: reports: No Symptoms Neurological: reports: No Symptoms Endocrine: reports: No Symptoms Hematology/Lymphatic: reports: No Symptoms Psychiatric: reports: No Symptoms Vital Signs: Vital Signs Temperature Pulse Rate 70 03/20/19 15:05 Respiratory Rate 16 03/20/19 15:05 Blood Pressure 111/60 03/20/19 15:05 O2 Sat by Pulse Oximetry (%) 98 03/20/19 15:05 Constitutional: Yes: No Distress, Calm Eyes: Yes: Conjunctiva Clear, EOM Intact HENT: Yes: Atraumatic, Normocephalic Neck: Yes: Supple, Trachea Midline Respiratory: Yes: Regular, CTA Bilaterally Gastrointestinal: Yes: Normal Bowel Sounds, Soft Cardiovascular: Yes: Regular Rate and Rhythm JVD: No Heart Sounds: Yes: S1, S2 Extremities: No: Cold Edema: No Integumentary: No: Jaundice Neurological: Yes: Alert, Oriented Psychiatric: No: Agitated - Other Data Labs, Other Data: CBC, BMP 03/20/19 11:17 03/20/19 11:17 INR, PTT INR 0.94 (0.83-1.09) 03/20/19 11:17 Troponin, BNP 03/20/19 11:17 Troponin I < 0.02 Troponin, BNP 03/20/19 11:17 Troponin I < 0.02 Assessment/Plan EKG: SVT 190 bpm ->sinus tachycardia tele: SVT 190s ->sinus CXR: no acute process SVT - now in sinus - increase metoprolol succinate to 50 mg BID - can take additional dose 25 mg if palpitations - advised to follow up with EP - gave contact information [place] Mortensen [place] [facility] [place] will [place] an appointment to discuss ablation - stable for dc from cardiac standpoint HTN - continue current meds HLD - cont statin
--- NOTE | 2019-03-25 11:22 | EKG ---
Test Reason : Blood Pressure : / mmHG Vent. Rate : 192 BPM Atrial Rate : 097 BPM P-R Int : 000 ms QRS Dur : 156 ms QT Int : 240 ms P-R-T Axes : 000 -17 068 degrees QTc Int : 429 ms SUPRAVENTRICULAR TACHYCARDIA RIGHT BUNDLE BRANCH BLOCK ABNORMAL ECG Confirmed by MD Nino, Aftab ([id number]) on 03/25/2019 11:22:23 AM Referred By: Confirmed By:fAtab Oneill MD
== END 2019-03-20 16:50 | disposition home or self-care (01) ==
LOC: JER 10:59
PROC: 3E033GC Introduction of Other Therapeutic Substance into Peripheral Vein, Percutaneous Approach (ICD-10-PCS; principal; 2019-03-20)
DX: I47.1 Supraventricular tachycardia (principal); I10 Essential (primary) hypertension; E78.5 Hyperlipidemia, unspecified; E03.9 Hypothyroidism, unspecified; Z88.8 Allergy status to other drugs, medicaments and biological substances
CPT/HCPCS: 36415; 71045-TC-FY; 80053; 82550; 83735; 84100; 84439; 84443; 84484; 85025; 85610; 85730; 93005; 93010; 99285-25